=== PATIENT | male | born 1990 | race Caucasian/White ===

== ENCOUNTER 2018-10-12 17:22 | Emergency (ER) | payer SELFPAY ==
[~2018-10-12] VITALS: Ht 170.2 cm; Wt 63.6 kg
[2018-10-12 17:31] VITALS: Ht 170.2 cm; Wt 63.6 kg
[2018-10-12 18:10] LABS: BASOPHILS 0.2 % (0-2); EOSINOPHILS 1.9 % (0-7); HEMATOCRIT 42.4 % (42.0-54.0); HEMOGLOBIN 14.6 g/dL (13.5-17.5); IMMATURE GRANULOCYTES 0.3 % (0-5); LYMPHOCYTES 18.4 % (15-50); MCH 29.4 pg (26.0-34.0); MCHC 34.4 g/dL (31.0-37.0); MCV 85.3 fL (80.0-100.0); MEAN PLATELET VOLUME 9.3 fL (7.4-10.4); MONOCYTES 9.4 % (2-11); NEUTROPHILS 69.8 % (40-80); PLATELET COUNT 182 10x3/uL (130-400); RBC 4.97 10x6/uL (4.20-6.10); RDW 11.9 % (11.5-14.5); WBC 9.6 10x3/uL (4.8-10.8)
[2018-10-12 18:29] LABS: ALBUMIN 3.9 g/dL (3.4-5.0); ALKALINE PHOSPHATASE 74 U/L (46-116); ALT (SGPT) 19 U/L (10-68); BILIRUBIN - TOTAL 0.43 mg/dL (0.2-1.3); CALC OSMOLALITY 278 mosm/kg (275-300); CALCIUM 8.6 mg/dL (8.5-10.1); CARBON DIOXIDE 26.6 mmol/L (21.0-32.0); CHLORIDE - SERUM 103 mmol/L (98-107); CREATININE - SERUM 0.9 mg/dL (0.6-1.3); GLUCOSE 87 mg/dL (74-106); MAGNESIUM - SERUM 2.3 mg/dL (1.8-2.4); POTASSIUM - SERUM 4.3 mmol/L (3.5-5.1); PROTEIN - SERUM 7.1 g/dL (6.4-8.2); SODIUM 139 mmol/L (136-145); UREA NITROGEN 19 mg/dL (7-18); eGFR NON AFRICAN AMERICAN > 90 mL/min (90-120)
--- NOTE | 2018-10-12 19:19 | NUR ---
PATIENT IS IN ER- EXAM 21. PATIENT HAS SUICIDAL IDEATIONS, HE WANTS TO CUT HIMSELF WITH RAZORS, PATIENT IS ORIENTED TO SELF, PLACE BUT NOT TIME. HE IS EXTREMELY HYPERVERBAL AND ALSO PRESSURED SPEECH, HE HAS TO BE REDIRECTED TO THE TASK AT HAND OVER AND OVER. SUICIDE PREVENTIOIN RESOURCES, SAFETY PLAN DISCUSSED WITH PATIENT AND PATIENT [facility]BS[facility] SHEET INTITIATED
[2018-10-12 20:46] LABS: APPEARANCE CLEAR (CLEAR); BILIRUBIN NEGATIVE (NEGATIVE); COLOR YELLOW (YELLOW); GLUCOSE NEGATIVE (NEGATIVE); KETONE MODERATE mg/dL (NEGATIVE); NITRITE NEGATIVE (NEGATIVE); PROTEIN NEGATIVE (NEGATIVE); SPECIFIC GRAVITY 1.015 (1.005-1.020); UROBILINOGEN NORMAL (NORMAL)
[2018-10-12 20:52] LABS: UDS - AMPHET NEGATIVE QUAL (NEGATIVE); UDS - BARB NEGATIVE QUAL (NEGATIVE); UDS - BENZO NEGATIVE QUAL (NEGATIVE); UDS - COCAINE NEGATIVE QUAL (NEGATIVE); UDS - OPIATE NEGATIVE QUAL (NEGATIVE); UDS - PCP NEGATIVE QUAL (NEGATIVE); UDS - THC NEGATIVE QUAL (NEGATIVE)
[2018-10-13 01:49] VITALS: BP 146/80
== END 2018-10-13 01:49 | disposition other institution (70) ==
LOC: EDBD 17:22 → D.ER 17:22
PROVIDERS: Family Medicine
DX: F23 Brief psychotic disorder (principal); R44.0 Auditory hallucinations; F20.9 Schizophrenia, unspecified